=== PATIENT | female | born 1950 ===

== ENCOUNTER 2022-11-18 05:28 | Day surgery (SDC) | payer OTHER, BC ==
[2022-11-16 11:12] VITALS: BMI 31.4
[~2022-11-18 05:28] MED LIST: BUPIVACAINE HCL/PF 0.75% 10 ML VIAL NR ONE; LIDOCAINE HCL 1% PRESERVATIVE FREE - 30ML VIAL IJ ONE
[2022-11-18 12:35] VITALS: RESP 16; TEMP 97.2
[2022-11-18] MEDS ORDERED: BUPIVACAINE HCL/PF 0.75% 10 ML VIAL NR ONE (13:27)
[2022-11-18] MEDS ORDERED: LIDOCAINE HCL 1% PRESERVATIVE FREE - 30ML VIAL IJ ONE (13:27)
[2022-11-18] MEDS ORDERED: ACETAMINOPHEN 500 MG TABLET (FP) PO PRN (14:15)
[2022-11-18 14:30] VITALS: BP 121/82; PULSE 63
== END 2022-11-18 14:00 | disposition home or self-care (01) ==
LOC: JASU-SURG 05:28
PROVIDERS: ATTEND Pain Medicine Pain Medicine
PROC: 3E0T3BZ Introduction of Anesthetic Agent into Peripheral Nerves and Plexi, Percutaneous Approach (ICD-10-PCS; principal; 2022-11-18 14:45)
DX: M47.816 Spondylosis without myelopathy or radiculopathy, lumbar region (principal)
CPT/HCPCS: 76000-TC-FY